=== PATIENT | male | born 1940 | race American Indian/Alaskan Native ===

== ENCOUNTER 2019-05-07 09:48 | Day surgery (SDC) | payer OTHER ==
[2019-05-07] MEDS ORDERED: SODIUM CHLORIDE 0.9% 1000 ML 1,000 ML ONE (11:20)
[2019-05-07] MEDS ORDERED: SODIUM CHLORIDE 0.9% 1000 ML 1,000 ML IV SCH (11:30)
[2019-05-07] MEDS ORDERED: METOPROLOL TARTRATE 25 MG TAB PO SCH (12:13)
--- NOTE | 2019-05-07 12:23 | Anesthesia Consultation ---
Anesthesia Consult and Med Hx Date of service: 05/07/19 - Airway Anesthetic Teeth Evaluation: Good ROM Head & Neck: Adequate Mental/Hyoid Distance: Adequate Mallampati Class: Class II Intubation Access Assessment: Probably Good - Pre-Operative Health Status ASA Pre-Surgery Classification: ASA3 Proposed Anesthetic Plan: General - Pulmonary Hx Smoking: Yes (STOPPED X 2 MONTHS (1/2-1/3 PPD X 50 YRS)) Hx Asthma: Yes Hx Respiratory Symptoms: No SOB: No COPD: No Home Oxygen Therapy: No Hx Pneumonia: No Hx Sleep Apnea: No (JASON PRE SCREEN HIGH RISK) - Cardiovascular System Hx Hypertension: Yes (2014) Hx Coronary Artery Disease: Yes (bypass surgery and stents) Hx Heart Attack/AMI: Yes ("MILD" 2014) Hx Angina: No Hx Cardia Arrhythmia: No Hx Pacemaker: No Hx Internal Defibrillator: No Hx Valvular 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 - HX ILIAC STENOSIS) - Central Nervous System Hx Neuromuscular Disorder: No Hx Seizures: No CVA: No Hx Back Pain: No Hx Psychiatric Problems: No - Gastrointestinal Hx Ulcer: No Hx Gastroesophageal Reflux Disease: No - Endocrine Hx Renal Disease: No Hx End Stage Renal Disease: No Hx Cirrhosis: No Hx Liver Disease: No Hx Insulin Dependent Diabetes: No Hx Non-Insulin Dependent Diabetes: Yes Hx Thyroid Disease: No Hx Hypothyroidism: Yes (HX PARTIAL THYROIDECTOMY- NO MEDS) Hx Hyperthyroidism: No - Hematic Hx Anemia: No Hx Sickle Cell Disease: No - Other Systems Hx Alcohol Use: Yes (occ) Hx Substance Use: No Hx Cancer: No Hx Obesity: Yes
--- NOTE | 2019-05-07 12:25 | Anesthesia Day of Surgery ---
Anesthesia Day of Surgery - Day of Surgery Patient Examined: Yes Patient H&P Reviewed: Yes Patient is NPO: Yes Beta Blockers: Yes
[2019-05-07] MEDS ORDERED: MANNITOL/SORBITOL SOLUTION 3,000 ML IRRIG.SOLN IR ONE ×2 (13:32)
[2019-05-07] MEDS ORDERED: fentaNYL 100 MCG/2 ML INJ ONE (13:37)
[2019-05-07] MEDS ORDERED: LIDOCAINE MPF (2%) 20 MG/1 ML VIAL 5 ML ONE (13:37)
[2019-05-07] MEDS ORDERED: PROPOFOL 200 MG/20 ML VIAL IV ONE ×2 (13:37→14:26)
[2019-05-07] MEDS ORDERED: PHENYLEPHRINE/NS 1,000 MCG/10 ML SYRINGE (OR USE) IV ONE (13:39)
[2019-05-07] MEDS ORDERED: dexAMETHasone 20 MG/5 ML VIAL ONE (13:39)
[2019-05-07] MEDS ORDERED: ONDANSETRON 4 MG/2 ML INJ ONE (13:39)
[2019-05-07] MEDS ORDERED: GLYCOPYRROLATE 0.4 MG/2 ML INJ ONE (13:39)
--- NOTE | 2019-05-07 13:52 | Post Operative Note ---
Date of procedure: 05/07/19 Pre-op diagnosis: +fish hematuria Post-op diagnosis: same Procedure: cysto rpgs bx Anesthesia: GETA Surgeon: HUSSAIN KUMARI Estimated blood loss: minimal Pathology: list (bladder) Specimen disposition: to lab Condition: stable Disposition: PACU
--- NOTE | 2019-05-07 13:54 | Discharge Summary ---
Short Stay Discharge Plan Activity: other (no straining ) Weight Bearing Status: Full Weight Bearing Diet: low fat, low cholesterol, low salt Special Instructions: other (inc fluids ) Durable Medical Equipment Needed Upon Discharge: other (burch care ) Follow up with: [facility] [Primary Care Provider] - 7 Days HUSSAIN KUMARI MD [Staff Physician] - 05/09/19
--- NOTE | 2019-05-07 15:06 | Operative Report ---
PREOPERATIVE DIAGNOSIS: Hematuria, positive cytology. POSTOPERATIVE DIAGNOSIS: Hematuria, positive cytology with very contracted bladder, thickened wall, very extreme vascularity with urethral stricture. PROCEDURE: Cystoscopy, direct vision internal urethrotomy, bladder biopsies, retrograde. SURGEON: Dr. Celeste. ANESTHESIA: General. FINDINGS: This is a gentleman who has severe irritative obstructive symptoms, positive cytology now presents for cystoscopy. DESCRIPTION OF PROCEDURE: The patient was brought to the operating room and placed on the operating table. Following induction of anesthesia, placed in lithotomy position, prepped and draped in usual sterile fashion. Upon entering the urethra, we saw that there were 2 elongated multi-centered strictures from the bulbous urethra to the membranous urethra. This was opened after wire coiled in the bladder under fluoroscopic guidance. Once we got into the bladder, there was cobblestoning, irregular epithelium, which began bleeding almost immediately when we distended his bladder. Retrograde showed some J hooking and a medial deviation of the ureters with good filling and good drainage. Multiple biopsies were done. These areas would spontaneously bleed when we distended the bladder. The patient tolerated the procedure well. We biopsied the prostatic urethra. A 22 [address] was placed blood-tinged. He was brought to recovery in stable condition. JOB# [id number] DONALDO/SABINA
--- NOTE | 2019-05-07 15:37 | Fluoroscopy Report ---
Cystogram and retrograde pyelogram. 05/07/2019. HISTORY: Bladder biopsy. FINDINGS: A preliminary film the abdomen is unremarkable. There is distention the bladder which demon strates mild trabeculation. Bilateral retrograde examinations were performed demonstrating no discret e filling defect. 12 fluoroscopic images were obtained. Fluoroscopy time: 36 seconds. Signer Name: Colten Espitia MD Signed: 05/07/2019 3:32 PM Workstation Name: [id number]
--- NOTE | 2019-05-07 15:43 | Post Anesthesia Evaluation ---
- Post Anesthesia Evaluation Patient Participated: Yes Airway Patent: Yes Stable Respiratory Function: Yes Nausea/Vomiting: No Temp > 96.8F: Yes Pain Manageable: Yes Adequeate Hydration: Yes Anesthesia Complications: No Block Receding Appropriately: Not Applicable Patient on Ventilator: No
[2019-05-07 15:48] VITALS: BP 139/64
== END 2019-05-07 09:49 | disposition home or self-care (01) ==
LOC: OR 09:48
PROVIDERS: ATTEND Urology
DX: R31.9 Hematuria, unspecified (principal); N35.913 Unspecified membranous urethral stricture, male; N35.912 Unspecified bulbous urethral stricture, male; H40.9 Unspecified glaucoma; I25.2 Old myocardial infarction; I25.10 Atherosclerotic heart disease of native coronary artery without angina pectoris; I73.9 Peripheral vascular disease, unspecified; E78.00 Pure hypercholesterolemia, unspecified; I10 Essential (primary) hypertension; J45.909 Unspecified asthma, uncomplicated; E66.9 Obesity, unspecified; E11.9 Type 2 diabetes mellitus without complications; E03.9 Hypothyroidism, unspecified; Z72.89 Other problems related to lifestyle; Z79.899 Other long term (current) drug therapy; Z79.82 Long term (current) use of aspirin; Z87.891 Personal history of nicotine dependence; Z98.49 Cataract extraction status, unspecified eye; Z95.5 Presence of coronary angioplasty implant and graft; Z95.2 Presence of prosthetic heart valve; Z86.2 Personal history of diseases of the blood and blood-forming organs and certain disorders involving the immune mechanism
CPT/HCPCS: 52204; 52275; 74420; 82962; 88305; C1758; J1100; J2370; J2405; J2704; J3010; J7030; Q9967; 74430